=== PATIENT | female | born 1980 | race Native Hawaiian/Other Pacific Islander ===

== ENCOUNTER 2018-05-16 13:21 | Emergency (ER) | payer OTHER ==
[~2018-05-16] VITALS: Ht 160 cm; Wt 113.4 kg
[2018-05-16 14:03] VITALS: TEMP 98.4
[2018-05-16 15:27] LABS: PLATELET COUNT 274 K/uL (152-353)
[2018-05-16 15:48] LABS: POTASSIUM 3.3 mmol/L (3.6-5.2)
[2018-05-16 17:04] VITALS: BP 112/62
== END 2018-05-16 18:32 | disposition home or self-care (01) ==
LOC: ED 13:21
PROVIDERS: Emergency Medicine
DX: N39.0 Urinary tract infection, site not specified (principal)
CPT/HCPCS: 36415; 80053; 80307; 81000; 85027; 87077; 87086; 87088; 87186; 99283

== ENCOUNTER 2022-12-04 09:29 | Emergency (ER) | payer OTHER ==
[~2022-12-04] VITALS: Ht 160 cm; Wt 99.8 kg
[2022-12-04 09:45] VITALS: BP 119/59; TEMP 97.7
== END 2022-12-04 10:54 | disposition home or self-care (01) ==
LOC: ED 09:29
DX: S42.251A Displaced fracture of greater tuberosity of right humerus, initial encounter for closed fracture (principal); W01.0XXA Fall on same level from slipping, tripping and stumbling without subsequent striking against object, initial encounter; F17.210 Nicotine dependence, cigarettes, uncomplicated; B20 Human immunodeficiency virus [HIV] disease
CPT/HCPCS: 96372; 99283; J1885